=== PATIENT | female | born 1995 ===

== ENCOUNTER 2018-10-03 12:00 | Emergency (ER) | payer BC, SELFPAY ==
--- NOTE | 2018-10-03 12:34 | ED.ABDPAIN ---
HPI - Abdominal Pain <TEE Gonzales - Last Filed: 10/03/18 22:08> General Chief Complaint: Abdominal Pain Stated Complaint: abdominal pain, fever Time Seen by Provider: 10/03/18 12:22 Source: patient Mode of arrival: ambulatory Limitations: no limitations History of Present Illness HPI narrative: 23-year-old healthy female that is a nonsmoker here for complaint of having right lower quadrant pain for the past several days. She also states she had a fever of 102. she denies any nausea vomiting. She is states that she is tolerating p.o. intake. Last bowel movement was yesterday and was unremarkable. No diarrhea. She denies any vaginal discharge or bleeding. She denies any urinary symptoms. She denies any trauma to the area. She denies any stressors or relievers of her pain. No other concerns or complaints Related Data Previous Rx's Medication Instructions Recorded polyethylene glycol 3350 [Miralax] 17 gram PO DAILY #14 each 10/03/18 Allergies Allergy/AdvReac Type Severity Reaction Status Date / Time No Known Drug Allergies Allergy Verified 10/03/18 12:48 Review of Systems <TEE Gonzales - Last Filed: 10/03/18 22:08> Constitutional Denies chills, Reports fever(s), Denies lethargy and Denies weakness Eyes Denies change in vision, Denies eye discharge, Denies irritation and Denies loss of vision ENT Ears, Nose, Mouth, and Throat: Denies change in voice, Denies neck pain and Denies sore throat Cardiovascular Denies chest pain, Denies irregular heart rhythm, Denies lightheadedness, Denies palpitations, Denies dyspnea, Denies dyspnea on exertion and Denies orthopnea Respiratory Denies cough, Denies dyspnea, Denies dyspnea on exertion and Denies wheezing Gastrointestinal Gastrointestinal: Reports abdominal pain Genitourinary Denies hematuria, Denies flank pain, Denies urinary incontinence and Denies urinary urgency Musculoskeletal Denies neck pain Integumentary/Breasts Denies pruritus, Denies erythema, Denies rash and Denies wounds Neurologic Denies confusion, Denies loss of vision and Denies weakness Psychiatric Denies anxiety, Denies confusion, Denies depression, Denies homicidal ideation and Denies suicidal ideation Endocrine Denies palpitations Hematologic/Lymphatic Denies easy bruising Allergic/Immunologic Denies wheezing Exam <TEE Gonzales - Last Filed: 10/03/18 22:08> Initial Vital Signs Initial Vital Signs: Vital Signs Temperature 99.1 F 10/03/18 12:40 Pulse Rate 117 H 10/03/18 12:40 Respiratory Rate 18 10/03/18 12:40 Blood Pressure 113/76 10/03/18 12:40 Pulse Oximetry 99 10/03/18 12:40 Const General: cooperative and well developed Nutritional Appearance: well nourished Orientation: alert, awake, oriented x3 and not confused [facility] Mouth: oral mucosae normal and moist mucous membranes Eyes Conjunctivae: conjunctivae normal Sclera: sclerae normal Pupils: PERRL EOM: EOM intact bilaterally Chest Chest: normal inspection of the chest Resp Effort & Inspection: normal respiratory effort, able to speak in complete sentences, no respiratory distress and no use of accessory muscles Auscultation: clear to auscultation bilaterally, no rales, no rhonchi and no wheezes Cardio Rate: regular rate Rhythm: regular rhythm Heart Sounds: no click, no gallops, no murmurs and no rubs Pulses: normal peripheral pulses GI Inspection: non-distended Palpation: soft, no hepatosplenomegaly, No guarding, No pulsatile mass and tender Auscultation: normal bowel sounds Other: tenderness on palpation ri General: No CVA tenderness Skin General: no rashes or lesions noted, No jaundice and No petechiae Neuro General: alert, oriented x3, gait normal and no focal motor deficits Speech: speech normal <Francisco Vallejo DO - Last Filed: 10/04/18 09:34> Initial Vital Signs Initial Vital Signs: Vital Signs Temperature 99.1 F 10/03/18 12:40 Pulse Rate 117 H 10/03/18 12:40 Respiratory Rate 18 10/03/18 12:40 Blood Pressure 113/76 10/03/18 12:40 Pulse Oximetry 99 10/03/18 12:40 Course <TEE Gonzales - Last Filed: 10/03/18 22:08> Orders Ordered: Discontinued Medications Sodium Chloride (Normal Saline 0.9%) 1,000 mls @ 150 mls/hr IV CONT YASHIRA Last Infusion: 10/03/18 15:28 Dose: 0 mls/hr Admin: 10/03/18 13:53 Dose: 150 mls/hr Ondansetron HCl (Zofran) 4 mg IV NOW ONE Stop: 10/03/18 13:16 Last Admin: 10/03/18 13:53 Dose: 4 mg Vital Signs - 8 hr 10/03/18 14:10 10/03/18 15:00 Pulse Rate 110 H 98 H Respiratory Rate 28 H 16 Blood Pressure [Left Arm] 115/75 109/63 Pulse Oximetry 94 97 <Francisco Vallejo DO - Last Filed: 10/04/18 09:34> Orders Ordered: Discontinued Medications Sodium Chloride (Normal Saline 0.9%) 1,000 mls @ 150 mls/hr IV CONT YASHIRA Last Infusion: 10/03/18 15:28 Dose: 0 mls/hr Admin: 10/03/18 13:53 Dose: 150 mls/hr Ondansetron HCl (Zofran) 4 mg IV NOW ONE Stop: 10/03/18 13:16 Last Admin: 10/03/18 13:53 Dose: 4 mg Vital Signs - 8 hr 10/03/18 14:10 10/03/18 15:00 Pulse Rate 110 H 98 H Respiratory Rate 28 H 16 Blood Pressure [Left Arm] 115/75 109/63 Pulse Oximetry 94 97 MDM - Abdominal Pain <TEE Gonzales - Last Filed: 10/03/18 22:08> Lab Data Result diagrams: 10/03/18 13:35 10/03/18 13:35 Lab Results 10/03/18 10/03/18 Range/Units 13:35 13:35 WBC 11.5 H (4.5-11.0) X10^3/uL RBC 5.07 (4.0-5.2) X10^6/uL Hgb 14.3 (12.0-16.0) g/dL Hct 41.6 (36-46) % MCV 82.1 (80-100) fL MCH 28.2 (26-34) PG MCHC 34.3 (30-36) % RDW 13.6 (11.6-14.8) % Plt Count 340 (150-400) X10^3/uL Neut % (Auto) 83.3 H (50-75) % Lymph % (Auto) 9.1 L (25-40) % [place] % (Auto) 7.1 (3-14) % Eos % (Auto) 0.1 L (2-4) % Baso % (Auto) 0.4 (0-2) % Neut # (Auto) 9600 H (4474-6243) /uL Sodium 144 (137-145) mmol/L Potassium 3.7 (3.4-5.1) mmol/L Chloride 103 (98-107) mmol/L Carbon Dioxide 24 (22-32) mmol/L BUN 8 (7-17) mg/dL Creatinine 0.70 (0.52-1.04) mg/dL Estimated GFR > 60.0 (>60) mL/min BUN/Creatinine Ratio 11.4 (6-22) Glucose 91 (70-100) mg/dL Calcium 9.4 (8.4-10.2) mg/dL Total Bilirubin 0.7 (0.2-1.3) mg/dL AST 19 (14-36) IU/L ALT 26 (9-52) IU/L Alkaline Phosphatase 75 (38-126) U/L Total Protein 8.9 H (6.3-8.2) g/dL Albumin 5.0 (3.5-5.0) g/dL Globulin 3.9 (1.7-4.1) g/dL Albumin/Globulin Ratio 1.3 (1.0-2.8) Lipase 26 (23-300) U/L Point of care testing: Point of Care Testing Test Results Negative Urine Dip Bedside Urine Glucose Negative Bedside Urine Bilirubin - Negative Bedside Urine Ketone - Negative Urine Specific [place] 1.025 Bedside Urine Occult Blood +++ Bedside Urine pH 6.0 Bedside Urine Protein - Negative Bedside Urine Urobilinogen - Negative Bedside Urine Nitrite - Negative Bedside Urine Leukocytes - Negative Esterase Imaging Data CT scan - abdomen: Radiologist's impression: CT Scan Report Signed Patient: Madai López#: [id number] : 1995Acct:[id number] Age/Sex: 23 / FDate of Service: 10/03/18 Loc: ED Accession Number: [id number] Procedure: CT abdomen pelvis w con Ordering Provider: Elias Mattson PROCEDURE: CT ABDOMEN PELVIS W CON INDICATIONS: Right lower quadrant pain TECHNIQUE: After the administration of oral and intravenous contrast, 5 mm thick sections acquired from the diaphragms to the symphysis. 5 mm thick coronal and sagittal reformats were performed. For radiation dose reduction, the following was used: automated exposure control, adjustment of mA and/or kV according to patient size. COMPARISON: None. FINDINGS: Image quality: Diagnostic. ABDOMEN: Lung bases: Lung bases are clear. Heart size is normal. Solid organs: Liver is normal in size and enhancement. Gallbladder is not enlarged or inflamed. Biliary system is non-dilated. Pancreas enhances normally. Spleen is normal in size and enhancement. No adrenal nodules. Kidneys are normal in size and enhancement, without hydronephrosis. Peritoneum and bowel: The stomach, duodenum and remainder of the small bowel loops are nondilated. The appendix is well-visualized and normal in size without surrounding inflammation. Moderate residual stool seen within the colon. No free fluid, loculated fluid collection or free air seen within the abdomen. Nodes and vessels: No retroperitoneal or mesenteric adenopathy. Aorta and inferior vena cava are normal in caliber. Miscellaneous: No ventral hernias. PELVIS: Genitourinary: Bladder wall thickness is normal. The uterus is normal in size. The ovaries are borderline prominent in size. No large cystic or solid lesions are evident. Miscellaneous: No inguinal hernias or adenopathy. A trace amount free fluid within the pelvis is likely physiologic. There is no loculated fluid collection or free air. Bones: No suspicious bony lesions. No vertebral body compression fractures. No significant degenerative changes of the image osseous structures of the abdomen or pelvis are evident. IMPRESSION: 1. No definite abnormality is identified to explain the patient's right lower quadrant pain. 2. Normal appendix. 3. No hydronephrosis or renal calculi. 4. Mild prominence of the bilateral ovaries is of uncertain significance. The need for better characterization utilizing a pelvic ultrasound may be determined clinically. 5. Moderate residual stool is in the proximal colon may represent constipation. No bowel obstruction. Dictated by: Fausto Bolanos M.D. on 10/03/2018 at 13:39 Approved by: Fausto Bolanos M.D. on 10/03/2018 at 13:42 MDM Narrative Medical decision making narrative: CBC shows mildly elevated white count of 11.5. Chem panel a paced were obtained were unremarkable. CT of the abdomen shows moderate stool load to the the proximal colon, appendix was unremarkable. bilateral ovaries are borderline prominent With no cysts. suspect viral illness and will treat conservatively with [id number] Tylenol or Motrin as needed for any discomfort and fever. Plenty of fluids And rest. Urinalysis was negative for urinary tract infection and . MiraLax as prescribed to help with any constipation. follow up with primary care provider next week. For any worsening symptoms return to the emergency room. the heart rate was elevated at check-in. After fluids her heart rate normalized. <Francisco Vallejo DO - Last Filed: 10/04/18 09:34> Lab Data Lab Results 10/03/18 10/03/18 Range/Units 13:35 13:35 WBC 11.5 H (4.5-11.0) X10^3/uL RBC 5.07 (4.0-5.2) X10^6/uL Hgb 14.3 (12.0-16.0) g/dL Hct 41.6 (36-46) % MCV 82.1 (80-100) fL MCH 28.2 (26-34) PG MCHC 34.3 (30-36) % RDW 13.6 (11.6-14.8) % Plt Count 340 (150-400) X10^3/uL Neut % (Auto) 83.3 H (50-75) % Lymph % (Auto) 9.1 L (25-40) % [place] % (Auto) 7.1 (3-14) % Eos % (Auto) 0.1 L (2-4) % Baso % (Auto) 0.4 (0-2) % Neut # (Auto) 9600 H (4371-3393) /uL Sodium 144 (137-145) mmol/L Potassium 3.7 (3.4-5.1) mmol/L Chloride 103 (98-107) mmol/L Carbon Dioxide 24 (22-32) mmol/L BUN 8 (7-17) mg/dL Creatinine 0.70 (0.52-1.04) mg/dL Estimated GFR > 60.0 (>60) mL/min BUN/Creatinine Ratio 11.4 (6-22) Glucose 91 (70-100) mg/dL Calcium 9.4 (8.4-10.2) mg/dL Total Bilirubin 0.7 (0.2-1.3) mg/dL AST 19 (14-36) IU/L ALT 26 (9-52) IU/L Alkaline Phosphatase 75 (38-126) U/L Total Protein 8.9 H (6.3-8.2) g/dL Albumin 5.0 (3.5-5.0) g/dL Globulin 3.9 (1.7-4.1) g/dL Albumin/Globulin Ratio 1.3 (1.0-2.8) Lipase 26 (23-300) U/L Point of care testing: Point of Care Testing Test Results Negative Urine Dip Bedside Urine Glucose Negative Bedside Urine Bilirubin - Negative Bedside Urine Ketone - Negative Urine Specific [place] 1.025 Bedside Urine Occult Blood +++ Bedside Urine pH 6.0 Bedside Urine Protein - Negative Bedside Urine Urobilinogen - Negative Bedside Urine Nitrite - Negative Bedside Urine Leukocytes - Negative Esterase Discharge Plan Departure Patient Disposition: Home Clinical Impression: Abdominal pain Discharge Date/Time: 10/03/18 15:29 Interventions: ED Discharge Assessment Last Done: 10/03/18 15:28 Instructions: DI for Abdominal Pain-Adult Activity Restrictions/Additional Instructions: laboratory results showed mildly elevated white count otherwise is unremarkable. CT scan of the abdomen shows [id number] stool loading to the colon. MiraLax as prescribed to help with any constipation use as directed. Use [id number] Tylenol or Motrin as needed for any discomfort. Signs and symptoms presents as viral illness. plenty of fluids and rest. Return emergency room for any worsening symptoms. Prescriptions: New polyethylene glycol 3350 [Miralax] 17 gram powder in packet 17 gram PO DAILY Qty: 14 RF: 0 Referrals: [facility] [Provider Group] <Francisco Vallejo DO - Last Filed: 10/04/18 09:34> Cosign ED Attending Paul Attestation: I was immediately available in the department for consultation. Documentation has been reviewed. I agree with assessment and plan.
[2018-10-03 12:40] VITALS: BP 113/76; PULSE 117; RESP 18; TEMP 37.3; O2SAT 99; BMI 35.5
--- NOTE | 2018-10-03 13:15 | DI.CT.S_ITS ---
PROCEDURE: CT ABDOMEN PELVIS W CON INDICATIONS: Right lower quadrant pain TECHNIQUE: After the administration of oral and intravenous contrast, 5 mm thick sections acquired from the diaphragms to the symphysis. 5 mm thick coronal and sagittal reformats were performed. For radiation dose reduction, the following was used: automated exposure control, adjustment of mA and/or kV according to patient size. COMPARISON: None. FINDINGS: Image quality: Diagnostic. ABDOMEN: Lung bases: Lung bases are clear. Heart size is normal. Solid organs: Liver is normal in size and enhancement. Gallbladder is not enlarged or inflamed. Biliary system is non-dilated. Pancreas enhances normally. Spleen is normal in size and enhancement. No adrenal nodules. Kidneys are normal in size and enhancement, without hydronephrosis. Peritoneum and bowel: The stomach, duodenum and remainder of the small bowel loops are nondilated. The appendix is well-visualized and normal in size without surrounding inflammation. Moderate residual stool seen within the colon. No free fluid, loculated fluid collection or free air seen within the abdomen. Nodes and vessels: No retroperitoneal or mesenteric adenopathy. Aorta and inferior vena cava are normal in caliber. Miscellaneous: No ventral hernias. PELVIS: Genitourinary: Bladder wall thickness is normal. The uterus is normal in size. The ovaries are borderline prominent in size. No large cystic or solid lesions are evident. Miscellaneous: No inguinal hernias or adenopathy. A trace amount free fluid within the pelvis is likely physiologic. There is no loculated fluid collection or free air. Bones: No suspicious bony lesions. No vertebral body compression fractures. No significant degenerative changes of the image osseous structures of the abdomen or pelvis are evident. IMPRESSION: 1. No definite abnormality is identified to explain the patient's right lower quadrant pain. 2. Normal appendix. 3. No hydronephrosis or renal calculi. 4. Mild prominence of the bilateral ovaries is of uncertain significance. The need for better characterization utilizing a pelvic ultrasound may be determined clinically. 5. Moderate residual stool is in the proximal colon may represent constipation. No bowel obstruction. Dictated by: Fausto Bolanos M.D. on 10/03/2018 at 13:39 Approved by: Fausto Bolanos M.D. on 10/03/2018 at 13:42
[2018-10-03 13:47] LABS: Add Manual Diff / Slide Review NO; Basophils Percent Auto 0.4 % (0-2); Eosinophils Percent Auto 0.1 % (2-4); Hematocrit 41.6 % (36-46); Hemoglobin 14.3 g/dL (12.0-16.0); Lymphocytes Percent Auto 9.1 % (25-40); Mean Corpuscular HGB Conc 34.3 % (30-36); Mean Corpuscular Hemoglobin 28.2 PG (26-34); Mean Corpuscular Volume 82.1 fL (80-100); Monocytes Percent Auto 7.1 % (3-14); Neutrophils Absolute Auto 9600 /uL (1500-7000); Neutrophils Percent Auto 83.3 % (50-75); Platelet Count 340 X10^3/uL (150-400); Red Blood Cell Count 5.07 X10^6/uL (4.0-5.2); Red Cell Distribution Width 13.6 % (11.6-14.8); White Blood Cell Count 11.5 X10^3/uL (4.5-11.0)
[2018-10-03] MEDS: SODIUM CHLORIDE 0.9% 1,000 ML 150 ML IV (13:53)
[2018-10-03] MEDS: ONDANSETRON 4 MG/2 ML INJ IV (13:53)
[2018-10-03 13:57] LABS: Alanine Aminotransferase 26 IU/L (9-52); Albumin Globulin Ratio 1.3 (1.0-2.8); Alkaline Phosphatase 75 U/L (38-126); Aspartate Aminotransferase 19 IU/L (14-36); BUN Creatinine Ratio 11.4 (6-22); Bilirubin Total 0.7 mg/dL (0.2-1.3); Blood Urea Nitrogen 8 mg/dL (7-17); Calcium 9.4 mg/dL (8.4-10.2); Carbon Dioxide 24 mmol/L (22-32); Chloride 103 mmol/L (98-107); Estimated Glomerular Filt Rate > 60.0 mL/min (>60); Globulin 3.9 g/dL (1.7-4.1); Glucose 91 mg/dL (70-100); HEMOLYSIS 15 (0-50); Lipase 26 U/L (23-300); Potassium 3.7 mmol/L (3.4-5.1); Sodium 144 mmol/L (137-145); Total Protein 8.9 g/dL (6.3-8.2)
[2018-10-03 14:10] VITALS: BP 115/75; PULSE 110; RESP 28; O2SAT 94
[2018-10-03 15:00] VITALS: BP 109/63; PULSE 98; RESP 16; O2SAT 97
== END 2018-10-03 15:29 | disposition home or self-care (01) ==
PROVIDERS: Emergency Provider Nurse Practitioner Family
DX: R10.9 Unspecified abdominal pain (principal)
CPT/HCPCS: 36591; 74177; 80053; 81003; 81025; 83690; 85025; 96361; 96374; 99283; 99285; J2405; Q9967